=== PATIENT | female | born 1965 | race Caucasian/White ===

== ENCOUNTER 2023-11-26 06:16 | Day surgery (SDC) | payer BC, SELFPAY ==
--- NOTE | 2023-10-27 12:22 | CM ---
Addendum entered by Sandra Strong 11/19/23 12:37:
Spoke again with patient. She has decided to come to for outpatient PT. She has obtained a rolling walker and cane and was told to bring her walker with her into the hospital on the day of surgery.
Original Note:
Patient is scheduled for an elective L TKR on 11/26/23- she is a same day patient. Spoke with patient prior to surgery. Introduced role of Orthopedic Navigator. Patient reports that she lives with her in a two story home. There is one step to
enter and a flight of steps to the second floor. She currently functions independently. She has a cane and rolling walker. She has never had VN services. PCP is Antwan Jenkins.
Discussed orthopedic program and post surgical plans. Reviewed that he will have VN services initially and will then start outpatient PT. Patient selects [facility]N (face sheet faxed to VN to facilitate confirmation of benefits) for her home care
needs and will go to [facility] for outpatient PT.
Patient is in agreement with plan and states that her will be home with her.
Patient will complete online education.
Plan: Orthopedic Navigator will remain available to assist with the care of patient and will reassess discharge needs after surgery.
[2023-11-06 09:09] VITALS: BMI 26.1
[2023-11-06 10:16] LABS: Hematocrit 41.5 % (37.0-47.0); Mean Corp Hgb Conc. 33.7 g/dL (33.0-37.0); Mean Corpuscular Hgb 30.3 pg (27.0-31.0); Mean Corpuscular Volume 89.8 fL (81.0-99.0); Platelet Count 282 10^3/uL (130-400); Red Blood Cell Count 4.62 10^6/uL (4.20-5.40); Red Cell Dist. Width 12.4 % (11.5-14.5); White Blood Cell Count 5.5 10^3/uL (4.8-10.8)
[2023-11-06 11:04] LABS: ALT (SGPT) 17 U/L (0-35); AST (SGOT) 28 U/L (14-36); Albumin 4.5 g/dl (3.5-5.0); Alkaline Phosphatase 78 U/L (38-126); Blood Urea Nitrogen 23 mg/dl (7-17); Calcium 10.3 mg/dl (8.4-10.2); Carbon Dioxide 30 mmol/L (22-30); Chloride 101 mmol/L (98-107); Estimated Creatinine Clearance 91 ml/min; Glucose 90 mg/dl (70-99); Potassium 4.9 mmol/L (3.5-5.1); Sodium 141 mmol/L (135-145); Total Bilirubin 0.5 mg/dl (0.2-1.3); Total Protein 7.7 g/dl (6.3-8.2); eGFR > 60.00
[2023-11-06 15:01] VITALS: BMI 26.1
[2023-11-07 11:15] LABS: Glycohemoglobin (HgbA1c) 5.7 % (4.0-5.6)
[2023-11-26] VITALS (11 sets, daily range): BP systolic 107–159; BP diastolic 60–94; BMI 26.1
[2023-11-26] MEDS: TYLENOL 650 MG PO (07:12)
[2023-11-26] MEDS: BACTROBAN NASAL 1 GRAM NASAL (07:16)
[2023-11-26] MEDS: CELEBREX 200 MG PO (07:38)
[2023-11-26] MEDS: NORMOSOL-R 1000 IV (07:40)
--- NOTE | 2023-11-26 07:48 | PTCARENOTE ---
Patient asking some of the same questions at times. Patient is extremley nervous. Patient also did not want to take off her underwear. Patient brought it up several time. Told patient that she would be covered during surgery. Patient also told by
the OR team that they would make sure that she is covered. Will monitor patient.
--- NOTE | 2023-11-26 10:27 | CM ---
Addendum entered by Sandra Strong 11/26/23 11:41:
Discussed with SDS RN. Patient is repeatedly asking the same questions (which she also did during navigator's multiple conversations with her). RN will review discharge instructions when is present.
Navigator spoke with upon his arrival to same day. Reviewed same day program in detail and reinforced need for him to be with patient for 24 hours after surgery. He confirmed ability to do this and states that he works from home. Discussed
with him patient repeatedly asking the same questions and not seeming to remember what is told to her. He states that the process leading up to surgery was 'a lot' for her but that this is also her baseline.
VN and PT aware.
Original Note:
Patient had planned L TKR today. Met with patient at bedside to review discharge plans. Patient will be returning home today with services through [facility]. On Friday, 11/30, patient will start outpatient PT at [facility]. Reviewed MD follow up
in two weeks and patient is aware of need to schedule appointment.
Patient's will be bringing her rolling walker when he returns to the hospital.
PT and VN were kept updated as to progress and discharge plans.
[2023-11-26] MEDS: ANCEF 5 IV (11:51)
[2023-11-26] MEDS: COMPAZINE 10 MG IV (11:51)
== END 2023-11-26 12:43 | disposition home health service (06) ==
LOC: SDS 06:16
PROVIDERS: ATTENDING PHYSICIAN Orthopaedic Surgery; FAMILY PHYSICIAN Family Medicine; OTHER PHYSICIAN Physician Assistant
DX: M17.12 Unilateral primary osteoarthritis, left knee (principal)
CPT/HCPCS: 27447; 36415; 73560; 80053; 83036; 85027; 87070; 97162; C1713; C1776

== ENCOUNTER 2023-12-04 19:17 | Outpatient (RCR) | payer BC, SELFPAY | END 2023-12-04 23:59 | disposition home or self-care (01) | LOC: RPT 19:17 | PROVIDERS: ATTENDING PHYSICIAN Orthopaedic Surgery; FAMILY PHYSICIAN Family Medicine | DX: Z47.1 Aftercare following joint replacement surgery (principal); Z96.652 Presence of left artificial knee joint; Z73.6 Limitation of activities due to disability | CPT/HCPCS: 97110; 97140; 97161; 97530 ==

== ENCOUNTER 2023-12-29 18:48 | Outpatient (RCR) | payer BC, SELFPAY | END 2023-12-30 10:22 | disposition home or self-care (01) | LOC: RPT 18:48 | PROVIDERS: ATTENDING PHYSICIAN Orthopaedic Surgery; FAMILY PHYSICIAN Family Medicine | DX: Z47.1 Aftercare following joint replacement surgery (principal); Z73.6 Limitation of activities due to disability; R26.2 Difficulty in walking, not elsewhere classified; M62.81 Muscle weakness (generalized); Z96.652 Presence of left artificial knee joint | CPT/HCPCS: 97110; 97112; 97140; 97530 ==

== ENCOUNTER → 2024-02-23 08:15 | Outpatient (REF) | payer BC, SELFPAY | LOC: HWRAD 08:15 | PROVIDERS: ATTENDING PHYSICIAN Family Medicine | DX: R41.89 Other symptoms and signs involving cognitive functions and awareness (principal) | CPT/HCPCS: 70450 ==

== ENCOUNTER → 2024-03-30 17:42 | Outpatient (REF) | payer BC, SELFPAY | LOC: MRI 3T 17:42 | PROVIDERS: ATTENDING PHYSICIAN Family Medicine | DX: R41.0 Disorientation, unspecified (principal); G31.84 Mild cognitive impairment of uncertain or unknown etiology; R41.89 Other symptoms and signs involving cognitive functions and awareness | CPT/HCPCS: 70551 ==

== ENCOUNTER → 2024-07-12 10:58 | Outpatient (REF) | payer BC, SELFPAY | LOC: DHSLP 10:58 | PROVIDERS: ATTENDING PHYSICIAN Family Medicine; FAMILY PHYSICIAN Internal Medicine Critical Care Medicine | DX: G47.33 Obstructive sleep apnea (adult) (pediatric) (principal); R06.83 Snoring | CPT/HCPCS: 95800 ==

== ENCOUNTER → 2024-10-01 11:36 | Outpatient (REF) | payer BC, SELFPAY | LOC: DHSLP 11:36 | PROVIDERS: ATTENDING PHYSICIAN Internal Medicine Critical Care Medicine; FAMILY PHYSICIAN Family Medicine | DX: G47.19 Other hypersomnia (principal); R06.83 Snoring | CPT/HCPCS: 95810 ==